=== PATIENT | male | born 1960 | race Caucasian/White ===

== ENCOUNTER 2019-09-06 06:16 | Outpatient (CLI) | payer BC, OTHER ==
--- NOTE | 2019-09-06 10:50 | RAD ---
EXAM: Chest 2 views: HISTORY: Preoperative radiograph COMPARISON: None. FINDINGS: There is a normal-sized cardiomediastinal silhouette. There is no evidence of consolidation, mass, or pleural effusion. The bones are unremarkable. IMPRESSION: No evidence of acute cardiopulmonary disease
[2019-09-06 13:38] LABS: INR-International Normal Ratio 0.9; Prothrombin Time 12.1 sec (12.0-14.7)
[2019-09-06 13:40] LABS: Hemoglobin 16.6 g/dL (14.0-18.0); Mean Corpuscular HGB CONC 33.5 g/dL (32.0-36.0); Mean Corpuscular Hemoglobin 30.5 pg (27.0-31.0); Mean Platelet Volume 8.2 fL (7.4-10.4); Platelet Count 189 thou/uL (130-400); RBC Distribution Width 12.1 % (11.5-14.5); Red Blood Cell (RBC) Count 5.46 mill/uL (4.70-6.10); White Blood Cell (WBC) Count 8.2 thou/uL (4.8-10.8)
[2019-09-06 13:54] LABS: Bacteria/HPF None Seen HPF (None Seen); Bilirubin Negative (Negative); Blood, Urine Negative (Negative); Clarity Clear (Clear); Glucose, Urine (Dipstick) Normal (Negative); Leukocyte Negative Leu/uL (Negative); Nitrite Negative (Negative); Protein, Urine (Dipstick) Negative (Neg-Trace); RBC/HPF 0-3 HPF (0-3); Squamous Epithelial None Seen HPF (0-3); Urobilinogen Normal mg/dL (Less than 2); WBC/HPF 0-3 HPF (0-3)
[2019-09-06 14:18] LABS: Anion Gap 13 mmol/L (10-20); BUN (Urea Nitrogen) 14 mg/dL (8.4-25.7); Calc. Creatinine Clearance 0 mL/min (70-130); Calcium 9.3 mg/dL (7.8-10.44); Carbon Dioxide 25 mmol/L (22-29); Chloride 105 mmol/L (98-107); Estimated GFR-MDRD Greater than 90; Glucose 78 mg/dL (70-105); Potassium 4.6 mmol/L (3.5-5.1); Sodium 138 mmol/L (136-145)
[2019-09-07 12:17] LABS: SARS-CoV-2 MS2 Positive; SARS-CoV-2 N Gene Negative; SARS-CoV-2 S Gene Negative; SARS-CoV-2 orf1ab Negative
--- NOTE | 2019-09-08 17:59 | EKG ---
Test Reason : PREOP Blood Pressure : / mmHG Vent. Rate : 049 BPM Atrial Rate : 049 BPM P-R Int : 170 ms QRS Dur : 090 ms QT Int : 414 ms P-R-T Axes : 051 012 027 degrees QTc Int : 373 ms Marked sinus bradycardia Abnormal ECG No previous ECGs available Confirmed by EILEEN MILLER (2) on 09/08/2019 5:59:04 PM Referred By: MOUNIKA Confirmed By:EILEEN MILLER
== END 2019-09-06 06:17 | disposition home or self-care (01) ==
LOC: LABBT 06:16
PROVIDERS: ATTEND Urology
DX: Z01.818 Encounter for other preprocedural examination (principal); Z11.59 Encounter for screening for other viral diseases; N40.1 Benign prostatic hyperplasia with lower urinary tract symptoms; R35.1 Nocturia; R39.15 Urgency of urination
CPT/HCPCS: 71046; 80048; 81001; 85027; 85610; 85730; 87086; 87635; 93005; 93010; U0003

== ENCOUNTER 2019-11-16 13:34 | Outpatient (CLI) | payer BC ==
[~2019-11-16 13:34] MED LIST: Magnevist 469MG/ML 20 ML VIAL ONE
--- NOTE | 2019-11-16 16:35 | MRI ---
MR OF THE PELVIS WITH AND WITHOUT CONTRAST INDICATION: 58-year-old male status post TURP biopsy and history of prostate cancer COMPARISON: None TECHNIQUE: Multiplanar, multisequence MR images were obtained of the pelvis with and without IV contr ast. 16 cc of MultiHance was utilized for the examination. The examination was reviewed on a separate viaCycle 3-D workstation for multiplanar metric evaluation. FINDINGS: Prostate size: The prostate measured 4.0 x 2.7 x 2.8cm. 16.2 cc. Peripheral zone: No area of restricted diffusion is seen within the peripheral zone. Central zone: No suspicious signal abnormality or focal lesion. Central TURP defect is present. Neural vasculature: No evidence of neurovascular invasion Regional lymphadenopathy: None Dynamic contrast enhancement: Negative. Osseous structures: No suspicious osseous lesion is identified. Additional findings: Mild sigmoid colonic diverticulosis. IMPRESSION: 1. PIRADS 1-Very Low (clinically significant cancer is highly unlikely to be present.)
== END 2019-11-16 13:35 | disposition home or self-care (01) ==
LOC: TBSIIMAG 13:34
PROVIDERS: ATTEND Urology
DX: C61 Malignant neoplasm of prostate (principal)
CPT/HCPCS: 72197; A9579

== ENCOUNTER 2020-02-21 06:19 | Outpatient (CLI) | payer BC ==
[2020-02-21 08:51] LABS: Mean Corpuscular HGB CONC 34.2 G/DL (32.0-36.0); Mean Corpuscular Hemoglobin 30.5 PG (27.0-33.0); Mean Corpuscular Volume 89.1 fl (80.0-100.0); Mean Platelet Volume 9.8 fl (7.4-10.4); Platelet Count 209 10x3/uL (130-400); RBC Distribution Width 12.5 % (11.5-14.5); Red Blood Cell (RBC) Count 5.25 10x6/uL (4.40-5.80); White Blood Cell (WBC) Count 7.5 10x3/uL (4.5-11.0)
[2020-02-21 09:06] LABS: Bilirubin Neg (Negative); Blood, Urine Negative (Negative); Clarity Clear (Clear); Glucose, Urine (Dipstick) Normal (Negative); Ketone, Urine Negative (Negative); Leukocyte Negative (Negative); Nitrite Negative (Negative); Protein, Urine (Dipstick) Negative (Neg-Trace); Specific Gravity, Urine 1.015 (1.002-1.036); Urobilinogen Normal mg/dL (Less than 2); pH, Urine 6.5 (5.0-9.0)
[2020-02-21 09:08] LABS: PTT 27.6 sec (22.0-33.0); Prothrombin Time 10.3 sec (9.5-12.1)
[2020-02-21 09:22] LABS: Anion Gap 17 mmol/L (10-20); BUN (Urea Nitrogen) 13 mg/dL (8.4-25.7); Calc. Creatinine Clearance 0 mL/min (70-130); Calcium 9.7 mg/dL (7.8-10.44); Carbon Dioxide 23 mmol/L (22-29); Chloride 103 mmol/L (98-107); Glucose 101 mg/dL (70-105); Potassium 4.5 mmol/L (3.5-5.1); Sodium 138 mmol/L (136-145)
[2020-02-21 09:47] LABS: Bacteria/HPF None Seen HPF (None Seen); RBC/HPF 0-3 HPF (0-3); Sperm/HPF Rare HPF (None Seen); Squamous Epithelial None Seen HPF (0-3); WBC/HPF None Seen HPF (0-3)
[2020-02-22 09:42] LABS: SARS-CoV-2 MS2 Positive; SARS-CoV-2 N Gene Negative; SARS-CoV-2 S Gene Negative; SARS-CoV-2 by NAA Not Detected (NotDetected); SARS-CoV-2 orf1ab Negative
== END 2020-02-21 06:20 | disposition home or self-care (01) ==
LOC: LABBT 06:19
PROVIDERS: ATTEND Urology
DX: Z01.818 Encounter for other preprocedural examination (principal); C61 Malignant neoplasm of prostate; N32.0 Bladder-neck obstruction; R35.1 Nocturia; R39.15 Urgency of urination; Z20.828 Contact with and (suspected) exposure to other viral communicable diseases
CPT/HCPCS: 80048; 81001; 85027; 85610; 85730; 87086; 87635; 93005; 93010; U0003

== ENCOUNTER 2020-02-24 06:17 | Day surgery (SDC) | payer BC ==
[2020-02-23 08:23] VITALS: BMI 29.5
[2020-02-24] MEDS ORDERED: Fentanyl 100 MCG/2 ML VIAL ONE ×2 (06:54→08:40)
[2020-02-24] MEDS ORDERED: Midazolam HCl 2 mg/2 ml Vial ONE (06:54)
[2020-02-24] MEDS ORDERED: Levofloxacin 500 mg/D5W 100 ml Premix Bag ONE (07:04)
[2020-02-24] MEDS ORDERED: Iothalamate Meglumine 60% 50 ML VIAL FS ONE (07:39)
[2020-02-24] MEDS ORDERED: B & O ONE (07:39)
[2020-02-24 07:55] LABS: ALT (SGPT) 69 U/L (8-55); AST (SGOT) 39 U/L (5-34); Albumin 4.2 g/dL (3.5-5.0); Alkaline Phosphatase 102 U/L (40-110); Bilirubin, Direct 0.3 mg/dL (0.1-0.3); Bilirubin, Total 0.7 mg/dL (0.2-1.2); Cardiac Risk 3.6 (Less than 4.5); Cholesterol 150 mg/dl (< 200 Desired); HDL Cholesterol 42 mg/dL (>60 Neg Risk); Iron 86 ug/dL (65-175); Iron Binding Capacity, Total 361 mcg/dL (261-462); LDL Cholesterol, Calculated 64 mg/dL; Protein, Total 7.5 g/dL (6.0-8.3); Triglycerides 222 mg/dL (Less than 150)
[2020-02-24 08:13] LABS: Ferritin 92.48 ng/mL (22-322); Thyroid Stimulating Hormone 1.7714 uIU/mL (0.35-4.94)
[2020-02-24 08:14] LABS: T4 8.7 ug/dL (4.87-11.72)
[2020-02-24 08:17] LABS: HBSAB Concentration 143.05 mIU/mL; Hep B Surf AB Reactive (NonReactive)
[2020-02-24 08:19] LABS: Vitamin B12 284 pg/mL (211-911)
[2020-02-24 08:29] LABS: HBCM Index 0.11 S/CO (0-0.79); Hep A IgM AB Non-Reactive (NonReactive); Hep A IgM S/CO 0.11 S/CO (0-0.79); Hep B Surf Ag Non-Reactive S/CO (NonReactive); Hep C IgG Ab Non-Reactive (NonReactive); Hep C Index 0.12 S/CO (0-0.79); Hepatitis B Core IgM Abs Non-Reactive (NonReactive); Vitamin D, 25 Hydroxy 28.5 ng/ml (> 30.0)
--- NOTE | 2020-02-24 08:54 | OP ---
DATE OF PROCEDURE: 02/24/2020 SERVICE: Urology. PREOPERATIVE DIAGNOSIS: Bladder neck contracture. POSTOPERATIVE DIAGNOSIS: Bladder neck contracture. PROCEDURE PERFORMED: Transurethral incision of bladder neck. 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 He underwent a TURP, after which time he was urinating very well for a period of time. Unfortunately, his urine stream has diminished. We performed a cystoscopy which demonstrated a bladder neck contracture. I recommended a TUIBN with dilation with risks and benefits, and he has agreed to proceed forward. DESCRIPTION OF PROCEDURE: After identification of armband and verification of consent, the patient was brought back to the operating room, where he underwent general anesthesia with an LMA. He was then placed in dorsal lithotomy position and prepped and draped in usual sterile fashion. After appropriate time-out, a 22-Maltese rigid cystoscope was introduced per urethra into the prostate up to the level of the bladder neck contracture. A 30 cm NephroMax balloon dilator was positioned across the bladder neck contracture and inflated up to 30-Maltese at 14 atmospheres. This was then taken down and removed. The cystoscope was also removed. A 26-Maltese resectoscope sheath with visual obturator was then passed into the urethra and into the bladder. The bladder neck appeared wide open at this point, but I did want to completely open it up to avoid recurrent stricturing. The visual obturator was then switched out for the bipolar button. Using the vaporization setting, the inferior aspect of the bladder neck was vaporized further to make more smooth entry into the bladder and remove any additional scar tissue. Some raw areas were cauterized. This left a nice entry way into the bladder from the prostatic fossa. Satisfied that the bladder was then opened, an 18-Maltese Matthew catheter was placed into the patient's bladder with ease. 10 mL of sterile water was placed into the balloon. This was then hooked up to gravity drainage. B and O suppository were placed in the patient's rectum. He was taken out of positioning, awakened, taken to PACU for recovery in stable condition. COMPLICATIONS: None. ESTIMATED BLOOD LOSS: Minimal. RETAINED TUBES AND DRAINS: An 18-Maltese Matthew catheter to gravity drainage. SPECIMENS: None. DISPOSITION: The patient will be discharged home. He will be instructed to remove his catheter tomorrow and I will plan to see him back in approximately 2 weeks for a postop check. Job ID: [id number]
[2020-02-24] MEDS ORDERED: Phenazopyridine HCl 100 MG TAB ONE (09:19)
[2020-02-24] MEDS ORDERED: Morphine 2 MG/ML VIAL ONE ×2 (10:22→10:44)
[2020-02-24] MEDS ORDERED: Oxybutynin 5 MG TAB ONE (10:44)
[2020-02-24] MEDS ORDERED: HYDROcodone/Acetaminophen 5/325 mg Tablet ONE (11:11)
[2020-02-24] MEDS ORDERED: Ondansetron PF 4 MG/2 ML Vial ONE (11:59)
[2020-02-24] MEDS ORDERED: Dexamethasone 20 MG/5 ML VIAL ONE (11:59)
[2020-02-24] MEDS ORDERED: PROPOFOL 200 MG/20 ML VIAL ONE (11:59)
[2020-02-24] MEDS ORDERED: Lidocaine 1% PF 5 ML VIAL ONE (11:59)
== END 2020-02-24 11:45 | disposition home or self-care (01) ==
LOC: SDC 06:17
PROVIDERS: ATTEND Urology
PROC: 0TBC8ZZ Excision of Bladder Neck, Via Natural or Artificial Opening Endoscopic (ICD-10-PCS; principal; 2020-02-24)
DX: N32.0 Bladder-neck obstruction (principal); F10.20 Alcohol dependence, uncomplicated; F19.90 Other psychoactive substance use, unspecified, uncomplicated; Z79.82 Long term (current) use of aspirin; Z79.899 Other long term (current) drug therapy; Z87.891 Personal history of nicotine dependence; Z88.2 Allergy status to sulfonamides
CPT/HCPCS: 80061; 80074; 80076; 82306; 82607; 82728; 83036; 83540; 83550; 84403; 84436; 84443; 84479; 86141; 86706; J1100; J1956; J2250; J2270; J2405; J2704; J3010

== ENCOUNTER 2022-07-15 09:07 | Outpatient (CLI) | payer BC ==
[2022-07-15 10:43] LABS: Bilirubin Neg (Negative); Blood, Urine Negative (Negative); Clarity Clear (Clear); Glucose, Urine (Dipstick) Normal (Negative); Ketone, Urine Negative (Negative); Leukocyte Negative (Negative); Nitrite Negative (Negative); Protein, Urine (Dipstick) Negative (Neg-Trace); Specific Gravity, Urine 1.015 (1.005-1.030); Urobilinogen Normal mg/dL (Less than 2)
[2022-07-15 10:46] LABS: Hemoglobin 16.3 g/dL (13.5-17.5); Mean Corpuscular HGB CONC 33.5 g/dL (32.0-36.0); Mean Corpuscular Hemoglobin 30.1 pg (27.0-33.0); Mean Corpuscular Volume 89.7 fl (81.2-95.1); Platelet Count 209 10x3/uL (150-450); RBC Distribution Width 13.2 % (11.5-14.5); Red Blood Cell (RBC) Count 5.42 10x6/uL (4.32-5.72); White Blood Cell (WBC) Count 8.1 10x3/uL (3.5-10.5)
[2022-07-15 10:52] LABS: Bacteria/HPF None Seen HPF (None Seen); RBC/HPF 0-3 HPF (0-3); Squamous Epithelial None Seen HPF (0-3); WBC/HPF None Seen HPF (0-3)
[2022-07-15 10:56] LABS: PTT 27.1 sec (22.0-33.0); Prothrombin Time 10.5 sec (9.5-12.1)
[2022-07-15 10:57] LABS: Anion Gap 13 mmol/L (10-20); BUN (Urea Nitrogen) 18 mg/dL (8.4-25.7); Calc. Creatinine Clearance 0 mL/min (70-130); Calcium 8.7 mg/dL (7.8-10.44); Carbon Dioxide 24 mmol/L (23-31); Chloride 107 mmol/L (98-107); Estimated GFR 100; Glucose 74 mg/dL (80-115); Potassium 4.8 mmol/L (3.5-5.1); Sodium 139 mmol/L (136-145)
== END 2022-07-15 09:08 | disposition home or self-care (01) ==
LOC: LABBT 09:07
PROVIDERS: ATTEND Urology
DX: Z01.818 Encounter for other preprocedural examination (principal); C61 Malignant neoplasm of prostate; N20.0 Calculus of kidney; N32.0 Bladder-neck obstruction; R39.15 Urgency of urination; R35.1 Nocturia
CPT/HCPCS: 80048; 81001; 85027; 85610; 85730; 87086; 93005; 93010

== ENCOUNTER 2022-07-19 11:04 | Day surgery (SDC) | payer BC ==
[2022-07-15 09:26] VITALS: BMI 28.1
[2022-07-19] MEDS ORDERED: fentaNYL PF 100 MCG/2 ML SYRINGE ONE (12:32)
[2022-07-19] MEDS ORDERED: Iopamidol 15 ML ONE (12:36)
[2022-07-19] MEDS ORDERED: Iopamidol 0 ML ONE (12:36)
[2022-07-19] MEDS ORDERED: fentaNYL 50 mcg/mL 1 mL Vial ONE ×2 (12:38→14:35)
[2022-07-19] MEDS ORDERED: Levofloxacin 500 mg/D5W 100 ml Premix Bag ONE (12:48)
[2022-07-19] MEDS ORDERED: PROPOFOL 200 MG/20 ML VIAL ONE (13:15)
[2022-07-19] MEDS ORDERED: Ondansetron PF 4 MG/2 ML Vial ONE (13:15)
[2022-07-19] MEDS ORDERED: Ketorolac Tromethamine 30 MG/ML VIAL ONE (13:15)
[2022-07-19] MEDS ORDERED: ePHEDrine Sulfate 50 MG/10 ML VIAL ONE ×2 (13:15)
[2022-07-19] MEDS ORDERED: Dexamethasone 20 MG/5 ML VIAL ONE (13:15)
[2022-07-19] MEDS ORDERED: Glycopyrrolate 0.2 MG/ML 5 ML SYRINGE ONE (13:15)
[2022-07-19] MEDS ORDERED: Lidocaine 1% PF 5 ML VIAL ONE (13:15)
[2022-07-19] MEDS ORDERED: Triamcinolone 40 MG/ML VIAL ONE (13:31)
[2022-07-19] MEDS ORDERED: Phenazopyridine HCl 100 MG TAB ONE (14:29)
[2022-07-19] MEDS ORDERED: Oxybutynin 5 MG TAB ONE (14:29)
== END 2022-07-19 16:00 | disposition home or self-care (01) ==
LOC: SDC 11:04
PROVIDERS: ATTEND Urology
PROC: 0TBC8ZZ Excision of Bladder Neck, Via Natural or Artificial Opening Endoscopic (ICD-10-PCS; principal; 2022-07-19)
PROC: 0T768DZ Dilation of Right Ureter with Intraluminal Device, Via Natural or Artificial Opening Endoscopic (ICD-10-PCS; principal; 2022-07-19)
DX: N32.0 Bladder-neck obstruction (principal); N20.0 Calculus of kidney; F10.11 Alcohol abuse, in remission; Z79.1 Long term (current) use of non-steroidal anti-inflammatories (NSAID); Z79.899 Other long term (current) drug therapy; Z88.2 Allergy status to sulfonamides; Z98.890 Other specified postprocedural states
CPT/HCPCS: C1747; C1769; C2617; J1100; J1885; J1956; J2405; J2704; J3010; J3301; Q9967

== ENCOUNTER 2022-11-20 13:11 | Outpatient (CLI) | payer BC | END 2022-11-20 13:12 | disposition home or self-care (01) | LOC: ULT 13:11 | PROVIDERS: ATTEND Urology | DX: N20.0 Calculus of kidney (principal) | CPT/HCPCS: 76770 ==